=== PATIENT | female | born 1945 | race Native Hawaiian/Other Pacific Islander ===

== ENCOUNTER 2019-06-27 17:30 | Emergency (ER) | payer OTHER ==
[~2019-06-27] VITALS: Ht 162.6 cm; Wt 60.8 kg
[2019-06-27 17:30] VITALS: TEMP 98.2
[2019-06-27 18:39] LABS: PLATELET COUNT 321 K/uL (152-353)
[2019-06-27 18:43] LABS: POTASSIUM 3.5 mmol/L (3.6-5.2)
[2019-06-27 19:30] VITALS: BP 149/82
== END 2019-06-28 00:10 | disposition home or self-care (01) ==
LOC: ED 17:43
PROVIDERS: Family Medicine
DX: S22.069A Unspecified fracture of T7-T8 vertebra, initial encounter for closed fracture (principal); S22.089A Unspecified fracture of T11-T12 vertebra, initial encounter for closed fracture; R93.0 Abnormal findings on diagnostic imaging of skull and head, not elsewhere classified; R10.2 Pelvic and perineal pain; V59.50XA Passenger in pick-up truck or van injured in collision with unspecified motor vehicles in traffic accident, initial encounter
CPT/HCPCS: 80053; 81000; 85027; 99283